=== PATIENT | female | born 1970 | race Caucasian/White ===

== ENCOUNTER 2016-09-19 19:35 | Emergency (ER) | payer SELFPAY ==
[2016-09-19 19:50] VITALS: O2SAT 100
--- NOTE | 2016-09-19 20:34 | C.PDOC ---
History Of Present Illness 45 year old female complains of pain to left wrist for 2 weeks. She reports pain is aching and worse with movement. She states pain starts at thumb and radiates into her forearm. Denies any injury, numbness, weakness. Time Seen by Provider: 09/19/16 19:57 Chief Complaint (Nursing): Finger,Hand,&Wrist History Per: Patient History/Exam Limitations: no limitations Onset/Duration Of Symptoms: Days Current Symptoms Are (Timing): Still Present Quality: Aching Severity: Moderate Exacerbating Factor(s): Movement Recent travel outside of the [place]: No Past Medical History Reviewed: Historical Data, Nursing Documentation, Vital Signs Vital Signs: Last Vital Signs Temp 97.9 F 09/19/16 20:46 Pulse 63 09/19/16 20:46 Resp 20 09/19/16 20:46 BP 104/69 09/19/16 20:46 Pulse Ox 100 09/19/16 20:46 Family History: States: Unknown Family Hx - Social History Hx Tobacco Use: No Hx Alcohol Use: No Hx Substance Use: No - Immunization History Hx Tetanus Toxoid Vaccination: Yes Hx Influenza Vaccination: No Hx Pneumococcal Vaccination: No Review Of Systems Musculoskeletal: Positive for: Other (left wrist pain) Neurological: Negative for: Weakness, Numbness Physical Exam - Physical Exam Appears: Non-toxic, No Acute Distress Skin: Warm, Dry, No Rash Head: Atraumatic, Normacephalic Eye(s): bilateral: Normal Inspection Neck: Normal ROM Chest: Symmetrical Extremity: Normal ROM (painful), Tenderness (radial aspect of wrist and thumb), Capillary Refill (<2 seconds), No Deformity, No Swelling Pulses: Left Radial: Normal Neurological/Psych: Oriented x3, Normal Speech, Normal Motor, Normal Sensation Gait: Steady ED Course And Treatment O2 Sat by Pulse Oximetry: 100 (room air) Pulse Ox Interpretation: Normal Medical Decision Making Medical Decision Making: Patient with pain to wrist and forearm, no trauma. Based on history and exam, xray not indicated, symptoms related to tendonitis. Toradol IM ordered. Volar splint applied for support. Recommend rest, ice and NSAID for pain. Follow up with ortho if pain persists Disposition Counseled Patient/Family Regarding: Need For Followup, Rx Given - Disposition Referrals: Booker Johnson III, MD [Staff Provider] - Disposition: HOME/ ROUTINE Disposition Time: 20:34 Condition: STABLE Additional Instructions: Vaya a segal mdico o la clnica en 2-5 gilliam sin falta, para mas evaluacin. [place] los medicamentos malia indicado. Volver a la ora de emergencia en cualquier momento si los sntomas persisten o empeoran. Prescriptions: Naproxen [Naprosyn] 1 tab PO BID PRN #25 tab PRN Reason: Pain Instructions: Tendinitis (ED) Print Language: [place] - POA Present On Arrival: None - Clinical Impression Clinical Impression: Tendonitis - PA / PUBLIC WEIGHER / Resident Statement MD/DO has reviewed & agrees with the documentation as recorded. - Scribe Statement The provider has reviewed the documentation as recorded by the Scribe Walker Maxwell All medical record entries made by the Scribe were at my direction and personally dictated by me. I have reviewed the chart and agree that the record accurately reflects my personal performance of the history, physical exam, medical decision making, and the department course for this patient. I have also personally directed, reviewed, and agree with the discharge instructions and disposition.
[2016-09-19 20:48] VITALS: BP 104/69; PULSE 63; RESP 20; TEMP 97.9
== END 2016-09-19 20:48 | disposition home or self-care (01) ==
LOC: C.ER 19:35
DX: M77.8 Other enthesopathies, not elsewhere classified (principal)
CPT/HCPCS: 96372; 99283; J1885